=== PATIENT | female | born 1970 | race Caucasian/White ===

== ENCOUNTER 2021-05-13 16:02 | Outpatient (CLI) | payer BC | END 2021-05-13 16:03 | disposition home or self-care (01) | LOC: SCSRAD 16:02 | PROVIDERS: ATTEND Family Medicine | DX: R05 Cough (principal) | CPT/HCPCS: 71046 ==

== ENCOUNTER 2024-09-14 11:19 | Outpatient (CLI) | payer OTHER | END 2024-09-14 11:20 | disposition home or self-care (01) | LOC: SCSRAD 11:19 | PROVIDERS: ATTEND Family Medicine | DX: R05.9 Cough, unspecified (principal) | CPT/HCPCS: 71046 ==